=== PATIENT | female | born 1990 | race Caucasian/White ===

== ENCOUNTER 2016-05-26 20:27 | Emergency (ER) | payer OTHER ==
[~2016-05-26] VITALS: Ht 170.2 cm; Wt 103.7 kg
[~2016-05-26 20:27] MED LIST: DOCUSATE SODIU100 MG PO; ENDOCET 5-3251 EACH PO; FLINTSTONES CO1 EAC1 PO; IBUPROFEN800 MG PO; KEFLEX500 MG PO; PRENATAL TABLE1 EAC3 PO; PROCTOFOAM-HC10 GM PR
[2016-05-26 21:08] LABS: HEMATOCRIT 39.9 % (36.0-46.0); MCH 26.4 PG (29.0-34.0); MCHC 32.1 G/DL (30.0-36.0); MCV 82.3 FL (83-99); MEAN PLAT.VOLUME 11.6 uM^3 (9.5-12.4); PLATELET COUNT 250 K/uL (156-360); RBC DIS.WIDTH-CV 14.8 % (11.8-14.6); RBC DIS.WIDTH-SD 44.9 % (39-53); RED BLOOD COUNT 4.85 M/uL (3.80-5.20); WHITE BLOOD COUNT 10.9 K/uL (4.1-10.2)
[2016-05-26 21:17] LABS: CHLORIDE 107 mEq/L (99-109)
[2016-05-26 21:18] LABS: POTASSIUM 3.4 mEq/L (3.7-5.4); SODIUM 140 mEq/L (136-147)
[2016-05-26 21:20] LABS: GLUCOSE 89 mg/dL (70-99)
[2016-05-26 21:21] LABS: ANION GAP 8 MEQ/L (2-14)
[2016-05-26 21:22] LABS: TOTAL BILIRUBIN 0.5 mg/dL (0.0-1.0)
[2016-05-26 21:23] LABS: ALKALINE PHOSPHATASE 64 IU/L (3-129); GFR ESTIMATE (CALCULATED) > 59 mL/min/
[2016-05-26 21:25] LABS: UREA NITROGEN (BUN) 7 mg/dL (9-23)
[2016-05-26 21:32] LABS: QUANTITATIVE HCG 1419.1 MIU/ML
[2016-05-26 22:44] LABS: ADD MIUA? YES; BILIRUBIN NEGATIVE; BLOOD SMALL; COLOR YELLOW ((YELLOW)); GLUCOSE (STRIP) NEGATIVE; KETONES NEGATIVE; LEUKOCYTES SMALL; NITRITE NEGATIVE; PROTEIN (STRIP) NEGATIVE; UROBILINOGEN 0.2 MG/DL (0.2-1.0)
[2016-05-26 23:06] LABS: BACTERIA NONE SEEN /HPF; EPITHELIAL CELLS 2+ /HPF; MUCUS TRACE /LPF; RED BLOOD CELLS 0-5 /HPF (0-5); UCUL ADDED? NO; WHITE BLOOD CELLS 0-5 /HPF (0-5)
[2016-05-27 01:28] VITALS: BP 137/89
== END 2016-05-27 01:29 | disposition home or self-care (01) ==
LOC: EME 20:27
DX: O26.891 Other specified pregnancy related conditions, first trimester (principal); R10.31 Right lower quadrant pain; D72.829 Elevated white blood cell count, unspecified; E87.6 Hypokalemia; Z97.5 Presence of (intrauterine) contraceptive device; O99.331 Smoking (tobacco) complicating pregnancy, first trimester; F17.200 Nicotine dependence, unspecified, uncomplicated
CPT/HCPCS: 76801; 80053; 81003; 84702; 85027; 99281; 99284

== ENCOUNTER 2016-06-05 10:50 | Day surgery (SDC) | payer OTHER ==
[~2016-06-05] VITALS: Ht 172.7 cm; Wt 97.5 kg
[2016-06-05 11:26] VITALS: BP 117/67
[2016-06-05 11:55] LABS: EOSINOPHIL (%) 0.5 % (0-5); HEMATOCRIT 39.6 % (36.0-46.0); IMMATURE GRANULOCYTE (%) 0.5 % (0.0-0.7); INSTRUMENT ABS NEUTROPHIL CT 6.5 K/uL; LYMPHOCYTE COUNT 1.2 K/uL (1.0-2.8); MCH 26.6 PG (29.0-34.0); MCHC 32.3 G/DL (30.0-36.0); MCV 82.2 FL (83-99); MEAN PLAT.VOLUME 11.1 uM^3 (9.5-12.4); MONOCYTE (%) 5.8 % (3-12); MONOCYTE COUNT 0.5 K/uL (0-0.8); NEUTROPHIL (%) 78.5 % (45-76); NEUTROPHIL COUNT 6.5 K/uL (1.8-6.4); PLATELET COUNT 208 K/uL (156-360); RBC DIS.WIDTH-CV 14.8 % (11.8-14.6); RBC DIS.WIDTH-SD 44.7 % (39-53); RED BLOOD COUNT 4.82 M/uL (3.80-5.20); WHITE BLOOD COUNT 8.3 K/uL (4.1-10.2)
[2016-06-05] MEDS ORDERED: MOTRIN800 MG PO (13:10)
[2016-06-05] MEDS ORDERED: VICODIN 5-3001 EACH PO (13:10)
[2016-06-05 15:10] VITALS: BP 119/63
[2016-06-05 15:50] VITALS: BP 131/73
== END 2016-06-05 16:00 | disposition home or self-care (01) ==
LOC: SDC 10:50
PROVIDERS: Obstetrics & Gynecology
PROC: 10D17ZZ Extraction of Products of Conception, Retained, Via Natural or Artificial Opening (ICD-10-PCS; principal; 2016-06-05)
DX: O02.1 Missed abortion (principal); Z3A.01 Less than 8 weeks gestation of pregnancy; N85.4 Malposition of uterus; F17.210 Nicotine dependence, cigarettes, uncomplicated; Z82.49 Family history of ischemic heart disease and other diseases of the circulatory system; Z80.9 Family history of malignant neoplasm, unspecified
CPT/HCPCS: 85025; 86850; 86900; 86901; 88305; J1100; J1170; J1885; J2250; J2405; J3010